=== PATIENT | female | born 1995 | race American Indian/Alaskan Native ===

== ENCOUNTER 2018-10-07 09:20 | Emergency (ER) | payer BC, OTHER ==
[2018-10-07 09:26] VITALS: BMI 41.6
--- NOTE | 2018-10-07 09:56 | PDOC ---
History of Present Illness - General Chief Complaint: Pain, Acute Stated Complaint: 5WKS/ ABD./ LOWER BACK PAIN Time Seen by Provider: 10/07/18 09:40 History Source: Patient Exam Limitations: No Limitations - History of Present Illness Travel History: No Initial Comments: 10/07/18 10:35 23-year-old female currently 5 weeks based on LMP presents to ED with complaints of lower abdominal cramping and aching worsened in the evening into the night hours. Patient denies any urinary complaints, vaginal discharge, but states pain does radiate to her back. Patient states has had no care but has an appointment next week with Dr. Montez for her first appointment . Patient has no other complaints at this time including nausea, fever or chills Timing/Duration: reports: intermittent Quality: reports: mild, aching, cramping Abdominal Pain Onset Location: reports: suprapubic Pain Radiation: reports: back Activities at Onset: reports: other (in evening hours) Aggravating Factors: improves with: None Alleviating Factors: improves with: None Past History - Travel Traveled outside of the country in the last 30 days: No Close contact w/someone who was outside of country & ill: No - Past Medical History Allergies/Adverse Reactions: Allergies Allergy/AdvReac Type Severity Reaction Status Date / Time No Known Allergies Allergy Verified 10/07/18 09:24 Home Medications: Ambulatory Orders NK [No Known Home Medication] 10/07/18 Anemia: Yes Asthma: No Cancer: No Cardiac Disorders: No COPD: No Diabetes: No HTN: No Seizures: No Thyroid Disease: No - Suicide/Smoking/Psychosocial Hx Smoking History: Never smoked Hx Alcohol Use: No Drug/Substance Use Hx: No Hx Substance Use Treatment: No Patient Lives Alone: No Lives with/in: spouse/SO Review of Systems - Review of Systems Able to Perform ROS?: Yes Constitutional: No: Symptoms Reported HEENTM: No: Symptoms Reported Respiratory: No: Symptoms reported Cardiac (ROS): No: Symptoms Reported ABD/GI: Yes: Abdominal cramping : No: Symptoms Reported Musculoskeletal: Yes: Back Pain Integumentary: No: Symptoms Reported Neurological: No: Symptoms reported Endocrine: No: Symptoms Reported Hematologic/Lymphatic: No: Symptoms Reported *Physical Exam - Vital Signs Last Vital Signs Temp Pulse Resp BP Pulse Ox 97.9 F 83 16 137/80 99 10/07/18 09:24 10/07/18 09:24 10/07/18 09:24 10/07/18 09:24 10/07/18 09:24 - Physical Exam General Appearance: Yes: Nourished, Appropriately Dressed. No: Apparent Distress HEENT: negative: Pale Conjunctivae Neck: positive: Normal Thyroid Respiratory/Chest: positive: Lungs Clear, Normal Breath Sounds. negative: Respiratory Distress, Accessory Muscle Use Cardiovascular: positive: Regular Rhythm, Regular Rate. negative: Murmur Gastrointestinal/Abdominal: positive: Normal Bowel Sounds, Soft, Tenderness ( lower periumbilical / mid suprapubic ) Musculoskeletal: negative: CVA Tenderness, Vertebral Tenderness Extremity: positive: Normal Inspection Integumentary: positive: Normal Color, Warm, Moist Neurologic: positive: Motor Strength 5/5 (ambulatory) ED Treatment Course - LABORATORY CBC & Chemistry Diagram: 10/07/18 10:15 10/07/18 10:15 - RADIOLOGY Radiology Studies Ordered: Category Date Time Status TRANSVAGINAL US PREG [US] Stat Ultrasound 10/07/18 09:47 Ordered Medical Decision Making - Medical Decision Making 10/07/18 11:20 CC: Lower abdominal aching and cramping for the past 2 nights beginning in the evening without aggravating or alleviating factors patient is currently 5 weeks with no workup as of yet. Followed by Dr. Montez. Exam. Patient with lower periumbilical/ mid suprapubic tenderness with no CVA tenderness or abnormal vital signs. Plan: Labs, urine and ultrasound ordered 10/07/18 11:37 Laboratory Tests 10/07/18 10/07/18 10/07/18 10:15 10:15 10:15 WBC 9.2 Hgb 12.3 Hct 36.3 D Sodium 138 Potassium 4.4 Chloride 107 Carbon Dioxide 26 Anion Gap 6 L BUN 8.6 Creatinine 0.5 L Est GFR (CKD-EPI)AfAm 160.35 Est GFR (CKD-EPI)NonAf 138.35 Random Glucose 91 Calcium 8.9 Total Bilirubin 0.2 AST 13 L ALT 21 Alkaline Phosphatase 53 Total Protein 7.4 Albumin 3.2 L Lipase 94 Urine Ketones Urine Blood Urine Nitrite Urine Bilirubin Ur Leukocyte Esterase Urine WBC (Auto) 10/07/18 10:15 WBC Hgb Hct Sodium Potassium Chloride Carbon Dioxide Anion Gap BUN Creatinine Est GFR (CKD-EPI)AfAm Est GFR (CKD-EPI)NonAf Random Glucose Calcium Total Bilirubin AST ALT Alkaline Phosphatase Total Protein Albumin Lipase Urine Ketones Negative Urine Blood Negative Urine Nitrite Negative Urine Bilirubin Negative Ur Leukocyte Esterase Trace Urine WBC (Auto) 14 urine culture sent 10/07/18 13:31 Sounds shows a single IUP corresponding with 6 weeks 5 days gestation by CRL. heart rate is at 1 25 bpm. 1.8 x 1.5 x 2.2 cm right ovarian corpus luteal cyst noted No evidence of torsion noted. Patient has no urinary complaints elevated white count or fever. Will await urine culture results prior to treatment *DC/Admit/Observation/Transfer Diagnosis at time of Disposition: Abdominal pain during - Discharge Dispostion Disposition: HOME Condition at time of disposition: Good - Referrals - Patient Instructions Printed Discharge Instructions: DI for Abdominal Pain -- Early Additional Instructions: Please drink plenty of fluids. Take Tylenol as needed for discomfort. If symptoms worsen or you develop fever, vomiting or severe abdominal pain please return to ED. - Post Discharge Activity
[2018-10-07 10:52] LABS: BASO % 0.5 % (0-2.0); EOS % 1.9 % (0-4.5); HEMATOCRIT 36.3 % (32.4-45.2); HEMOGLOBIN 12.3 GM/dL (10.7-15.3); LYMPH % 28.5 % (8-40); MCH 30.2 pg (25.7-33.7); MCHC 33.8 g/dl (32.0-36.0); MEAN CELL VOLUME 89.3 fl (80-96); MEAN PLT VOLUME 10.6 fl (7.5-11.1); MONO % 5.8 % (3.8-10.2); NEUT % 63.3 % (42.8-82.8); PLATELET COUNT 234 K/MM3 (134-434); RBC 4.06 M/mm3 (3.60-5.2); RDW 13.3 % (11.6-15.6); WHITE BLOOD COUNT 9.2 K/mm3 (4.0-10.0)
[2018-10-07 10:57] LABS: EPI CELLS 36.6 /HPF (0-5/HPF); HYALINE CASTS 34 /lpf (0-8); PH,URINE 6.5 (5.0-8.0); URINE APPEARANCE CLOUDY; URINE BACTERIA 800.3 /hpf (NEGATIVE); URINE BILIRUBIN NEGATIVE (NEGATIVE); URINE COLOR YELLOW; URINE GLUCOSE (UA) NEGATIVE (NEGATIVE); URINE KETONE NEGATIVE (NEGATIVE); URINE LEUK ESTERASE TRACE (NEGATIVE); URINE NITRITE NEGATIVE (NEGATIVE); URINE PROTEIN NEGATIVE (NEGATIVE); URINE RBC 2 /hpf (0-4); URINE UROBILINOGEN 0.2 mg/dL (0.2-1.0); URINE WBC 14 /hpf (0-5)
[2018-10-07 11:19] LABS: ALBUMIN 3.2 g/dl (3.4-5.0); BILIRUBIN,TOTAL 0.2 mg/dL (0.2-1); BLOOD UREA NITROGEN 8.6 mg/dL (7-18); CALCIUM 8.9 mg/dL (8.5-10.1); CREATININE 0.5 mg/dL (0.55-1.3); POTASSIUM 4.4 mmol/L (3.5-5.1); TOT PROT 7.4 g/dl (6.4-8.2)
[2018-10-07 13:42] VITALS: BP 130/78; PULSE 86; TEMP 98.1
== END 2018-10-07 13:42 | disposition home or self-care (01) ==
LOC: JER 09:20
DX: O26.891 Other specified pregnancy related conditions, first trimester (principal); Z3A.01 Less than 8 weeks gestation of pregnancy; R10.9 Unspecified abdominal pain
CPT/HCPCS: 36415; 76817-TC; 80053; 81003; 83690; 84702; 85025; 87086; 99283-25

== ENCOUNTER 2021-07-23 19:25 | Emergency (ER) | payer OTHER ==
[2021-07-23 19:34] VITALS: BP 132/78; BMI 45.3
[2021-07-23] MEDS ORDERED: ACETAMINOPHEN 1000 MG/100 ML BAG IVPB ONE (20:29)
[2021-07-23] MEDS ORDERED: SODIUM CHLORIDE 0.9% 500 ML INFUS.BAG IV ONE (20:29)
[2021-07-23] MEDS ORDERED: ACETAMINOPHEN INJECTION 100 ML IVPB ONE (20:35)
[2021-07-23 22:30] LABS: BASO % 0.3 % (0-2.0); EOS % 1.4 % (0-4.5); HEMATOCRIT 37.4 % (32.4-45.2); HEMOGLOBIN 12.9 GM/dL (10.7-15.3); LYMPH % 12.8 % (8-40); MCH 31.2 pg (25.7-33.7); MCHC 34.5 g/dl (32.0-36.0); MEAN CELL VOLUME 90.7 fl (80-96); MEAN PLT VOLUME 10.5 fl (7.5-11.1); MONO % 6.9 % (3.8-10.2); NEUT % 78.6 % (42.8-82.8); PLATELET COUNT 197 10^3/uL (134-434); RBC 4.12 M/mm3 (3.60-5.2); RDW 12.5 % (11.6-15.6); WHITE BLOOD COUNT 10.6 K/mm3 (4.0-10.0)
[2021-07-23 22:58] LABS: BLOOD UREA NITROGEN 12.5 mg/dL (7-18); CALCIUM 8.4 mg/dL (8.5-10.1)
[2021-07-23 23:02] LABS: CREATININE 0.7 mg/dL (0.55-1.3)
[2021-07-24 00:09] VITALS: PULSE 93; TEMP 97.3
== END 2021-07-24 00:38 | disposition home or self-care (01) ==
LOC: JER 19:25
PROC: 3E033NZ Introduction of Analgesics, Hypnotics, Sedatives into Peripheral Vein, Percutaneous Approach (ICD-10-PCS; principal; 2021-07-23)
DX: U07.1 COVID-19 (principal)
CPT/HCPCS: 0241U-QW; 36415; 71046-TC-FY; 80048; 85025; 93005; 93010; 99284-25

== ENCOUNTER 2023-01-21 08:03 | Emergency (ER) | payer OTHER ==
[2023-01-21 08:44] VITALS: BP 114/76; PULSE 80; RESP 18; TEMP 98.2; BMI 32.1
[2023-01-21 11:09] LABS: BASO % 0.5 % (0-2.0); EOS % 2.5 % (0-4.5); HEMATOCRIT 35.8 % (32.4-45.2); HEMOGLOBIN 11.7 GM/dL (10.7-15.3); LYMPH % 32.2 % (8-40); MCH 30.5 pg (25.7-33.7); MCHC 32.7 g/dl (32.0-36.0); MEAN CELL VOLUME 93.3 fl (80-96); MEAN PLT VOLUME 9.8 fl (7.5-11.1); MONO % 5.1 % (3.8-10.2); NEUT % 59.7 % (42.8-82.8); PLATELET COUNT 235 10^3/uL (134-434); RBC 3.84 M/mm3 (3.60-5.2); RDW 12.7 % (11.6-15.6); WHITE BLOOD COUNT 7.9 K/mm3 (4.0-10.0)
== END 2023-01-21 11:50 | disposition home or self-care (01) ==
LOC: JER 08:03
DX: N93.9 Abnormal uterine and vaginal bleeding, unspecified (principal); R10.32 Left lower quadrant pain; R53.1 Weakness; R53.83 Other fatigue; R42 Dizziness and giddiness
CPT/HCPCS: 36415; 84703; 85025; 99283-25